=== PATIENT | female | born 1990 | race Caucasian/White ===

== ENCOUNTER 2017-07-24 14:24 | Emergency (ER) | payer MEDICAID ==
[~2017-07-24] VITALS: Ht 170.2 cm; Wt 73.0 kg
[~2017-07-24 14:24] MED LIST: BENCRM TP; CYCL-1 PO; HYDR-569 PO; HYDR25CA PO; PROC-8 PO
[2017-07-24] MEDS ORDERED: CEPH-571 PO (15:22)
[2017-07-24 15:31] VITALS: BP 114/61
== END 2017-07-24 15:32 | disposition home or self-care (01) ==
LOC: ER 14:24
DX: L73.9 Follicular disorder, unspecified (principal); G43.909 Migraine, unspecified, not intractable, without status migrainosus; Z79.899 Other long term (current) drug therapy
CPT/HCPCS: 99283

== ENCOUNTER 2018-02-25 15:45 | Emergency (ER) | payer MEDICAID ==
[~2018-02-25] VITALS: Ht 170.2 cm; Wt 74.5 kg
[~2018-02-25 15:45] MED LIST changes: +CEPH-571 PO; +PRED50TA PO
[2018-02-25 15:51] VITALS: BP 133/82
[2018-02-25] MEDS ORDERED: PROPARACAINE/FLUORESCEIN ophthalmic drops 5ml bottle RIGHTEYE ONE (17:00)
[2018-02-25] MEDS ORDERED: naproxen 500mg tablet PO ONE (18:00)
== END 2018-02-25 18:07 | disposition home or self-care (01) ==
LOC: ER 15:45
DX: S00.11XA Contusion of right eyelid and periocular area, initial encounter (principal); H11.31 Conjunctival hemorrhage, right eye; G43.909 Migraine, unspecified, not intractable, without status migrainosus; Z79.899 Other long term (current) drug therapy; X58.XXXA Exposure to other specified factors, initial encounter; Y93.89 Activity, other specified; Y92.89 Other specified places as the place of occurrence of the external cause; Y99.9 Unspecified external cause status
CPT/HCPCS: 99283

== ENCOUNTER 2019-02-25 07:46 | Emergency (ER) | payer MEDICAID ==
[~2019-02-25] VITALS: Ht 170.2 cm; Wt 72.0 kg
[~2019-02-25 07:46] MED LIST changes: +HYDR-4383 PO; -HYDR-569 PO; +LORA-269 PO
[2019-02-25 07:50] VITALS: BP 109/65
[2019-02-25 08:15] LABS: CLARITY,URINE CLOUDY (Clear); COLOR,URINE YELLOW (Yellow); GLUCOSE, URINE NEGATIVE (Neg); KETONES,URINE 15 mg/dl (Neg); LEUKOCYTE ESTERASE ,URINE MODERATE (Neg); NITRITES, URINE NEGATIVE (Neg); OCCULT BLOOD,URINE MODERATE (Neg); PH,URINE 5.5 (4.8-8.0); PROTEIN,URINE TRACE mg/dl (Neg); UROBILINOGEN,URINE 0.2 E.U/dL (0.2-1.0)
[2019-02-25 08:16] LABS: UA COLLECTION TYPE CLN CATCH MIDSTREAM
[2019-02-25 08:21] LABS: BACTERIA,URINE 2+ /HPF (Neg); MUCUS STRANDS MANY /LPF (Neg); RENAL CELLS, URINE FEW /HPF; SQUAMOUS EPITHELIAL CELL,UR MANY /LPF (FEW); WBC CLUMPS,URINE MODERATE /HPF (NEGATIVE); WBC,URINE TNTC /HPF (0-4)
[2019-02-25 08:26] LABS: URINE HCG NEGATIVE (NEG)
[2019-02-25] MEDS ORDERED: CEPH500C5 PO (08:32)
[2019-02-25] MEDS ORDERED: PHEN-824 PO (08:32)
== END 2019-02-25 08:48 | disposition home or self-care (01) ==
LOC: ER 07:46
DX: N39.0 Urinary tract infection, site not specified (principal); G43.909 Migraine, unspecified, not intractable, without status migrainosus; Z86.69 Personal history of other diseases of the nervous system and sense organs; Z79.899 Other long term (current) drug therapy
CPT/HCPCS: 81001; 81025; 99283

== ENCOUNTER 2019-03-26 14:55 | Emergency (ER) | payer MEDICAID ==
[~2019-03-26] VITALS: Ht 177.8 cm; Wt 70.0 kg
[~2019-03-26 14:55] MED LIST changes: +PHEN-824 PO
[2019-03-26 15:07] VITALS: BP 134/86
[2019-03-26] MEDS ORDERED: LORA1TAB PO (15:39)
== END 2019-03-26 15:47 | disposition home or self-care (01) ==
LOC: ER 14:56
DX: F31.9 Bipolar disorder, unspecified (principal); F41.0 Panic disorder [episodic paroxysmal anxiety]; G43.909 Migraine, unspecified, not intractable, without status migrainosus; Z79.899 Other long term (current) drug therapy
CPT/HCPCS: 99284

== ENCOUNTER 2019-08-23 12:15 | Emergency (ER) | payer MEDICAID ==
[~2019-08-23] VITALS: Ht 170.2 cm; Wt 80.0 kg
[2019-08-23 12:22] VITALS: BP 122/80
[2019-08-23] MEDS ORDERED: HYDR25CA PO (12:51)
== END 2019-08-23 13:22 | disposition home or self-care (01) ==
LOC: ER 12:15
DX: F41.9 Anxiety disorder, unspecified (principal); G43.909 Migraine, unspecified, not intractable, without status migrainosus; Z86.69 Personal history of other diseases of the nervous system and sense organs; Z79.899 Other long term (current) drug therapy
CPT/HCPCS: 99283

== ENCOUNTER 2020-06-07 21:21 | Emergency (ER) | payer MEDICAID ==
[~2020-06-07] VITALS: Ht 170.2 cm; Wt 90.9 kg
[2020-06-07] MEDS ORDERED: HYDROcodone/acetaminophen 5mg/325mg tablet PO ONE (22:00)
[2020-06-07 22:10] LABS: BASOPHILS % (AUTO) 0.5 % (0-1); EOSINOPHILS # (AUTO) 0.2 X10'3 (0-0.9); EOSINOPHILS % (AUTO) 2.5 % (0-6); HEMATOCRIT 37.1 % (35.0-45.0); HEMOGLOBIN 12.7 g/dl (12.0-16.0); LYMPHOCYTES # (AUTO) 1.1 X10'3 (1.1-4.8); MEAN CORPUSCULAR HEMOGLOBIN 32.1 PG (27.0-31.0); MEAN CORPUSCULAR HGB CONC 34.1 g/dL (33.0-36.5); MEAN PLATELET VOLUME 8.5 FL (7.4-10.4); MONOCYTES # (AUTO) 0.6 X10'3 (0-0.9); MONOCYTES % (AUTO) 8.7 % (2-12); NEUTROPHILS # (AUTO) 5.1 X10'3 (1.8-7.7); NEUTROPHILS % (AUTO) 72.3 % (42-75); PLATELET COUNT 260 X10'3 (140-440); RED BLOOD COUNT 3.95 X10'6 (4.20-5.60); RED CELL DISTRIBUTION WIDTH 11.5 % (11.5-14.5); WHITE BLOOD COUNT 7.1 X10'3 (4.5-11.0)
[2020-06-07 22:23] LABS: ALANINE AMINOTRANSFERASE 46 U/L (12-78); ALBUMIN 4.2 G/DL (3.4-5.0); ALBUMIN/GLOBULIN RATIO 1.1 (1.1-1.5); ALKALINE PHOSPHATASE 73 IU/L (46-116); ANION GAP 15 (8-16); ASPARTATE AMINO TRANSFERASE 101 U/L (10-37); BILIRUBIN,TOTAL 1.4 MG/DL (0.1-1.0); BLOOD UREA NITROGEN 6 MG/DL (7-18); BUN/CREATININE RATIO 7.4 (6.6-38.0); CALCIUM 9.2 MG/DL (8.5-10.1); CHLORIDE 101 MMOL/L (99-107); CREATININE 0.81 MG/DL (0.40-0.90); GLUCOSE 83 MG/DL (70-104); POTASSIUM 3.7 MMOL/L (3.5-5.1); SODIUM 139 MMOL/L (135-145); TOTAL CARBON DIOXIDE 23.3 MMOL/L (24-32); eGFR 85 ML/MIN
[2020-06-07 22:33] LABS: CREATINE KINASE 5652 U/L (26-192)
[2020-06-07] MEDS ORDERED: NO HOME MEDS (22:38)
[2020-06-07] MEDS ORDERED: normal saline 1000ML IV soln IVB ONE (22:40)
[2020-06-07 22:43] LABS: CLARITY,URINE CLEAR (Clear); COLOR,URINE YELLOW (Yellow); GLUCOSE, URINE NEGATIVE (Neg); KETONES,URINE >=80 mg/dl (Neg); LEUKOCYTE ESTERASE ,URINE TRACE (Neg); NITRITES, URINE NEGATIVE (Neg); OCCULT BLOOD,URINE MODERATE (Neg); PH,URINE 5.5 (4.8-8.0); PROTEIN,URINE NEGATIVE (Neg); UROBILINOGEN,URINE 0.2 E.U/dL (0.2-1.0)
[2020-06-07 22:44] LABS: UA COLLECTION TYPE CLN CATCH MIDSTREAM
[2020-06-07 23:06] LABS: BACTERIA,URINE NONE SEEN /HPF (Neg); RBC,URINE 0-2 /HPF (0-2); SQUAMOUS EPITHELIAL CELL,UR FEW /LPF (FEW); WBC,URINE 0-4 /HPF (0-4)
[2020-06-07 23:07] LABS: MUCUS STRANDS NONE SEEN /LPF (Neg)
[2020-06-07] MEDS ORDERED: morphine 4 MG/ML inj SYRINge IV ONE (23:35)
[2020-06-08 00:56] VITALS: BP 133/83
== END 2020-06-08 00:59 | disposition home or self-care (01) ==
LOC: ER 21:22
DX: R74.8 Abnormal levels of other serum enzymes (principal); R68.84 Jaw pain; G43.909 Migraine, unspecified, not intractable, without status migrainosus; Z86.61 Personal history of infections of the central nervous system; Z79.2 Long term (current) use of antibiotics; Z79.899 Other long term (current) drug therapy
CPT/HCPCS: 36415; 80053; 81001; 82550; 85025; 87088; 96361; 96374; 99285; J2270; J7030